=== PATIENT | female | born 1960 | race Caucasian/White ===

== ENCOUNTER 2017-09-14 19:51 | Emergency (ER) | payer MEDICAID ==
[~2017-09-14] VITALS: Ht 162.6 cm; Wt 81.8 kg
[~2017-09-14 19:51] MED LIST: CALC-1038 PO; CETI-193 PO; DIPH25CA85 PO; LORA1TAB3 PO; THYR15TA PO
[2017-09-14] MEDS ORDERED: BECL8.7A6 IH (20:12)
[2017-09-14] MEDS ORDERED: FLUT16H NASAL (20:12)
[2017-09-14] MEDS ORDERED: SITA25 PO (20:12)
[2017-09-14] MEDS ORDERED: ALBU8HFA4 IH (20:12)
[2017-09-14 20:18] LABS: GLUCOSE,POINT OF CARE 211 MG/DL (70-110)
[2017-09-14 23:30] VITALS: BP 133/96
== END 2017-09-14 23:57 | disposition home or self-care (01) ==
LOC: EMS 19:52
DX: S09.90XA Unspecified injury of head, initial encounter (principal); E11.9 Type 2 diabetes mellitus without complications; F17.210 Nicotine dependence, cigarettes, uncomplicated; E03.9 Hypothyroidism, unspecified; Z88.0 Allergy status to penicillin; Z88.2 Allergy status to sulfonamides; Z88.1 Allergy status to other antibiotic agents; W01.0XXA Fall on same level from slipping, tripping and stumbling without subsequent striking against object, initial encounter; Y93.01 Activity, walking, marching and hiking; Y92.89 Other specified places as the place of occurrence of the external cause; Y99.8 Other external cause status
CPT/HCPCS: 70450; 82962; 99284